=== PATIENT | male | born 2000 ===

== ENCOUNTER 2020-09-25 17:12 | Outpatient (CLI) | payer MEDICAID ==
[2020-09-25 18:01] LABS: Hematocrit 44.1 % (35.5-45.6); Hemoglobin 15.5 gm/dl (11.8-15.2); Mean Corpuscular HGB Conc 35 % (32-34); Mean Corpuscular Volume 87 fl (84-94); Platelet Count 207 K/mm3 (140-440); Red Blood Count 5.08 M/mm3 (3.65-5.03); Red Cell Distribution Width 13.5 % (13.2-15.2)
[2020-09-25 18:22] LABS: Alanine Aminotransferase 12 units/L (7-56); Albumin 4.4 g/dL (3.9-5); Blood Urea Nitrogen 10 mg/dL (9-20); Hemolysis Index 2
[2020-09-25 18:28] LABS: Free T4 (Free Thyroxine) 1.09 ng/dL (0.76-1.46)
[2020-09-25 18:31] LABS: BUN/Creatinine Ratio 14
--- NOTE | 2020-09-25 18:33 | XRay Report ---
CHEST 2 VIEWS INDICATION / CLINICAL INFORMATION: CHEST PAIN. COMPARISON: None available. FINDINGS: SUPPORT DEVICES: None. HEART / MEDIASTINUM: No significant abnormality. LUNGS / PLEURA: No significant pulmonary or pleural abnormality. No pneumothorax. ADDITIONAL FINDINGS: No significant additional findings. IMPRESSION: No significant abnormality Signer Name: Pipe Martinez MD FACR Signed: 09/25/2020 6:29 PM Workstation Name: [email or web address]
[2020-09-25 19:09] LABS: Bilirubin,Direct < 0.2 mg/dL (0-0.2)
[2020-09-26 00:05] LABS: Total Cells Counted 100
[2020-09-26 00:06] LABS: Large Platelets Rare; RBC Morphology Normal
[2020-09-26 00:07] LABS: Platelet Estimate Consistent w Auto
== END 2020-09-25 17:13 | disposition home or self-care (01) ==
LOC: XRAY 17:12
PROVIDERS: ATTEND Preventive Medicine Public Health & General Preventive Medicine
DX: R07.9 Chest pain, unspecified (principal); R79.9 Abnormal finding of blood chemistry, unspecified; R68.89 Other general symptoms and signs; R94.6 Abnormal results of thyroid function studies; R94.5 Abnormal results of liver function studies; E78.5 Hyperlipidemia, unspecified; R73.09 Other abnormal glucose
CPT/HCPCS: 36415; 71046; 80048; 80076; 82465; 83036; 84439; 84443; 85007; 85025